=== PATIENT | female | born 1990 ===

== ENCOUNTER 2022-02-02 20:32 | Day surgery (SDC) | payer BC ==
[2022-02-02 20:57] VITALS: BMI 28.3
[2022-02-02] MEDS ORDERED: hydrALAZINE 20 MG/ML VIAL SLOW IVP PRN (21:18)
[2022-02-02] MEDS ORDERED: Cyclobenzaprine 10 MG TAB PO PRN (21:29)
[2022-02-02] MEDS ORDERED: Acetaminophen 500 MG TAB PO PRN (21:29)
[2022-02-02 22:13] LABS: Bilirubin Neg (Negative); Blood, Urine Negative (Negative); CAUTI Indications for Culture Pregnancy; Clarity Clear (Clear); Glucose, Urine (Dipstick) Normal (Negative); Ketone, Urine 50 mg/dL (Negative); Leukocyte Negative (Negative); Nitrite Negative (Negative); Protein, Urine (Dipstick) 15 mg/dl (Neg-Trace); Specific Gravity, Urine 1.015 (1.005-1.030); Urobilinogen Normal mg/dL (Less than 2)
[2022-02-02 22:15] LABS: Urine Culture Reflex Yes Yes
[2022-02-02 22:25] LABS: #Eosinphils 0.1 10x3/uL (0.0-0.5); #Monocytes 0.6 10x3/uL (0.0-1.1); #Neutrophils 14.4 10x3/uL (1.5-8.4); %Basophils 0.2 % (0.0-2.0); %Eosinophils 0.4 % (0.0-6.0); %Lymphocytes 11.2 % (18.0-47.0); %Monocytes 3.4 % (0.0-10.0); %Neutrophils 84.2 % (40.0-75.0); Hemoglobin 14.8 g/dL (12.0-15.5); Mean Corpuscular HGB CONC 35.1 g/dL (32.0-36.0); Mean Corpuscular Hemoglobin 30.5 pg (27.0-33.0); Mean Corpuscular Volume 86.8 fl (81.6-98.3); Mean Platelet Volume 9.4 fl (7.4-10.4); Platelet Count 256 10x3/uL (150-450); RBC Distribution Width 12.2 % (11.5-14.5); Red Blood Cell (RBC) Count 4.86 10x6/uL (3.90-5.03)
[2022-02-02 22:26] LABS: Bacteria/HPF 2+ HPF (None Seen); RBC/HPF 0-3 HPF (0-3); WBC/HPF 0-3 HPF (0-3)
[2022-02-02 22:35] LABS: INR-International Normal Ratio 0.9; PTT 27.4 sec (22.0-33.0); Prothrombin Time 9.6 sec (9.5-12.1)
[2022-02-02] MEDS ORDERED: cefTRIAXone\\ROCEPHIN 1 GM in Sodium Chloride 0.9% 100 ML IVPB SCH (22:45)
[2022-02-02] MEDS ORDERED: cefTRIAXone\\ROCEPHIN 1 GM VIAL IM SCH ×2 (22:45)
[2022-02-02] MEDS ORDERED: Sodium Chloride 0.9% 1,000 ML IV SCH (22:45)
[2022-02-02] MEDS ORDERED: Lidocaine 1% PF 5 ML VIAL FS SCH (22:45)
== END 2022-02-03 00:40 | disposition home or self-care (01) ==
LOC: CSHLD/OP 20:32
PROVIDERS: ATTEND Obstetrics & Gynecology
DX: O99.352 Diseases of the nervous system complicating pregnancy, second trimester (principal); G40.909 Epilepsy, unspecified, not intractable, without status epilepticus; Z3A.21 21 weeks gestation of pregnancy; Z79.899 Other long term (current) drug therapy; Z98.890 Other specified postprocedural states
CPT/HCPCS: 36415; 76815; 80175; 80177; 81001; 85025; 85384; 85610; 85730; 87086